=== PATIENT | female | born 1995 | race African-American/Black ===

== ENCOUNTER 2019-01-30 11:05 | Emergency (ER) | payer OTHER ==
[~2019-01-30] VITALS: Ht 172.7 cm; Wt 55.3 kg
[2019-01-30] MEDS ORDERED: LITHIUM CARBON300 M6 PO (11:10)
[2019-01-30] MEDS ORDERED: LEXAPRO 10 MG T10 M1 PO (11:11)
[2019-01-30] MEDS ORDERED: ATIVAN1 MG PO (11:11)
[2019-01-30] MEDS ORDERED: LOTRIMIN AF90 GM TOP (11:38)
[2019-01-30 12:07] LABS: ABSOLUTE BASOPHILS 0.1 thou/uL (0.0-0.2); ABSOLUTE EOSINOPHILS 0.2 thou/uL (0.0-0.7); ABSOLUTE LYMPHOCYTES 2.2 thou/uL (0.8-5.3); ABSOLUTE MONOCYTES 0.8 thou/uL (0.0-1.2); ABSOLUTE NEUTROPHILS 8.6 thou/uL (1.6-8.1); BASOPHILS 0.6 %; EOSINOPHILS 1.6 %; HEMATOCRIT 43.3 % (37.0-47.0); LYMPHOCYTES 18.2 %; MCH 26.1 pg (26.0-34.0); MCHC 32.4 g/dL (28.0-37.0); MCV 80.7 fL (80.0-100.0); MONOCYTES 6.9 %; MPV 8.3 fl. (7.2-11.1); NUCLEATED RBCS 0 /100WBC; PLATELET COUNT* 246 thou/uL (150-400); POLYS 72.7 %; RBC 5.36 mil/uL (4.20-5.00); RDW-CV 14.2 % (10.5-14.5); WBC 11.9 thou/uL (4.0-11.0)
[2019-01-30 12:24] LABS: ALBUMIN 4.2 g/dL (3.4-5.0); CALCIUM 9.9 mg/dL (8.5-10.1); POTASSIUM 4.1 mmol/L (3.5-5.1); TOTAL BILIRUBIN 0.3 mg/dL (<0.1-1.0); TOTAL PROTEIN 8.6 g/dL (6.4-8.2)
[2019-01-30 12:30] LABS: URINE BILIRUBIN NEGATIVE (Negative); URINE BLOOD TRACE (Negative); URINE CLARITY CLEAR; URINE COLOR YELLOW; URINE GLUCOSE-RANDOM NEGATIVE (Negative); URINE KETONES TRACE (Negative); URINE LEUKOCYTES-REFLEX 1+ (Negative); URINE NITRITE-REFLEX NEGATIVE (Negative); URINE PROTEIN NEGATIVE (Negative); URINE SPECIFIC GRAVITY 1.025 (1.005-1.030); URINE UROBILINOGEN 0.2 E.U./dl (0.2-1.0)
[2019-01-30 12:35] LABS: SQUAMOUS >10 Many /LPF (0-3)
[2019-01-30 12:36] LABS: BACTERIA-REFLEX 1-9 Few /HPF (None Seen); CASTS None Seen /LPF (None Seen); CRYSTALS None Seen /LPF (None Seen); URINE RBC 0-2 Rare /HPF (0-2); URINE WBC-REFLEX 0-5 Rare /HPF (0-5)
[2019-01-30 12:36] LABS: ACETAMINOPHEN < 2 ug/mL (10-30); ALCOHOL < 10 mg/dL (<10); SALICYLATE < 2.8 mg/dL (2.8-20.0)
[2019-01-30 12:47] LABS: AMP/METHAMP Negative (Negative); BARBITURATES Negative (Negative); BENZODIAZEPINES Negative (Negative); COCAINE Negative (Negative); METHADONE Negative (Negative); OPIATES Negative (Negative); PCP Negative (Negative); THC POSITIVE (Negative)
[2019-01-30 21:32] VITALS: BP 101/51
== END 2019-01-30 21:32 ==
LOC: M.ERS 11:05
PROVIDERS: Emergency Medicine Emergency Medical Services
DX: B35.3 Tinea pedis (principal)

== ENCOUNTER 2020-08-28 11:46 | Emergency (ER) | payer MEDICAID ==
[~2020-08-28] VITALS: Ht 170.2 cm; Wt 61.2 kg
[~2020-08-28 11:46] MED LIST: ATIVAN1 MG PO; LEXAPRO 10 MG T10 M1 PO; LITHIUM CARBON300 M6 PO; LOTRIMIN AF90 GM TOP
[2020-08-28] MEDS ORDERED: METFORMIN HCL500 M3 PO (11:50)
[2020-08-28] MEDS ORDERED: ADMELOG SO100 UNIT/1 SUBQ (11:52)
[2020-08-28 12:04] LABS: ABSOLUTE BASOPHILS 0.1 thou/uL (0.0-0.2); ABSOLUTE EOSINOPHILS 0.2 thou/uL (0.0-0.7); ABSOLUTE LYMPHOCYTES 1.6 thou/uL (0.8-5.3); ABSOLUTE MONOCYTES 0.6 thou/uL (0.0-1.2); ABSOLUTE NEUTROPHILS 5.6 thou/uL (1.6-8.1); BASOPHILS 0.8 %; EOSINOPHILS 2.9 %; HEMATOCRIT 36.5 % (37.0-47.0); HEMOGLOBIN 11.8 gm/dL (12.0-15.0); LYMPHOCYTES 19.5 %; MCH 23.7 pg (26.0-34.0); MCHC 32.2 g/dL (28.0-37.0); MCV 73.4 fL (80.0-100.0); MONOCYTES 7.8 %; MPV 8.3 fl. (7.2-11.1); NUCLEATED RBCS 0 /100WBC; PLATELET COUNT* 295 thou/uL (150-400); RBC 4.97 mil/uL (4.20-5.00); RDW-CV 17.8 % (10.5-14.5); WBC 8.1 thou/uL (4.0-11.0)
[2020-08-28 12:12] LABS: CALCIUM 9.2 mg/dL (8.5-10.1); POTASSIUM 4.2 mmol/L (3.5-5.1)
[2020-08-28 12:17] LABS: ALBUMIN 3.7 g/dL (3.4-5.0); TOTAL BILIRUBIN 0.4 mg/dL (<0.1-1.0); TOTAL PROTEIN 7.8 g/dL (6.4-8.2)
[2020-08-28 12:25] LABS: URINE BILIRUBIN NEGATIVE (Negative); URINE BLOOD NEGATIVE (Negative); URINE CLARITY SL CLOUDY; URINE COLOR YELLOW; URINE GLUCOSE-RANDOM NEGATIVE (Negative); URINE KETONES NEGATIVE (Negative); URINE LEUKOCYTES 1+ (Negative); URINE NITRITE NEGATIVE (Negative); URINE PROTEIN NEGATIVE (Negative); URINE UROBILINOGEN 0.2 E.U./dl (0.2-1.0)
[2020-08-28 12:40] VITALS: BP 120/79
[2020-08-28 12:41] LABS: SQUAMOUS >10 Many /LPF (0-3)
[2020-08-28 12:42] LABS: URINE RBC 0-2 Rare /HPF (0-2)
[2020-08-28 12:46] LABS: AMORPHOUS PHOSPHATES Moderate /LPF (None Seen); CASTS None Seen /LPF (None Seen); CRYSTALS None Seen /LPF (None Seen); MUCUS 4-6 Moderate strn/LPF (None Seen)
[2020-08-29] MEDS ORDERED: MEDROLDOSEPACK PO (09:30)
[2020-08-29] MEDS ORDERED: DIPHENHYDRAMINE25 M3 PO (09:30)
== END 2020-08-28 12:40 ==
LOC: M.ERS 11:46
PROVIDERS: Emergency Medicine
DX: F41.9 Anxiety disorder, unspecified (principal); N80.9 Endometriosis, unspecified; R10.84 Generalized abdominal pain; Z86.14 Personal history of Methicillin resistant Staphylococcus aureus infection

== ENCOUNTER 2020-08-29 08:41 | Emergency (ER) | payer OTHER ==
[~2020-08-29] VITALS: Ht 170.2 cm; Wt 61.2 kg
[~2020-08-29 08:41] MED LIST changes: +ADMELOG SO100 UNIT/1 SUBQ; +METFORMIN HCL500 M3 PO
[2020-08-29] MEDS ORDERED: DIPHENHYDRAMINE25 M3 PO (09:30)
[2020-08-29] MEDS ORDERED: MEDROLDOSEPACK PO (09:30)
[2020-08-29 10:21] VITALS: BP 101/53
== END 2020-08-29 10:22 | disposition home or self-care (01) ==
LOC: M.ERS 08:41
DX: L50.9 Urticaria, unspecified (principal)